=== PATIENT | female | born 2000 | race Two or more races ===

== ENCOUNTER 2021-07-23 14:29 | Emergency (ER) | payer MEDICAID, OTHER ==
[~2021-07-23] VITALS: Ht 172.7 cm; Wt 110.2 kg
[2021-07-23 15:02] LABS: Basophils # (auto) 0 10 ^3/uL (0-0.2); Basophils % (auto) 0.5 % (0.0-2.0); Eosinophils # (auto) 0 10 ^3/uL (0-0.8); Eosinophils % (auto) 0.3 % (0.0-7.0); Hematocrit 46.7 % (36.0-46.0); Hemoglobin 15.7 g/dL (12.2-16.2); Lymphocytes # (auto) 0.7 10 ^3/uL (0.4-5.4); Lymphocytes % (auto) 7.5 % (10.0-50.0); Mean Corpuscular Hgb Conc. 33.6 g/dL (32.0-36.0); Mean Corpuscular Volume 86.4 fL (80.0-100.0); Monocytes % (auto) 9.7 % (0.0-12.0); Neutrophils # (auto) 8.1 10 ^3/uL (1.6-8.6); Nucleated Red Blood Cells % 0.1 %; Red Cell Distribution Width 13.4 % (11.8-14.3); White Blood Cell 9.9 10^3/uL (4.4-10.8)
[2021-07-23 15:19] LABS: Albumin 4.1 g/dL (3.4-5.0); Calcium 9.9 mg/dL (8.5-10.1); Potassium 3.4 mmol/L (3.5-5.1)
[2021-07-23 15:28] LABS: Bilirubin, Total 1.1 mg/dL (0.2-1.0); Total Protein 8.6 g/dL (6.4-8.2)
[2021-07-23 16:10] LABS: Urine Bacteria NONE SEEN /hpf (None Seen); Urine Blood Negative /uL (Negative); Urine Hyaline Cast FEW /lpf (0 - 2); Urine Mucus FEW (None Seen); Urine Specific Gravity 1.025 (1.001-1.035); Urine WBC <1 /hpf (0 - 5)
[2021-07-23] MEDS ORDERED: SODIUM CHLORIDE 0.9% 1,000 ML IV ONE ×2 (16:15)
[2021-07-23 17:38] VITALS: BP 137/68
== END 2021-07-23 18:52 | disposition home or self-care (01) ==
LOC: ER 14:29
DX: O21.8 Other vomiting complicating pregnancy (principal); E86.0 Dehydration; Z3A.01 Less than 8 weeks gestation of pregnancy
CPT/HCPCS: 36415; 76801; 76817; 80053; 81001; 84702; 85025; 96360; 96361; 99284; J7030

== ENCOUNTER 2021-07-25 19:06 | Emergency (ER) | payer MEDICAID ==
[~2021-07-25] VITALS: Ht 172.7 cm; Wt 110.2 kg
[2021-07-25 20:47] VITALS: BP 139/72
== END 2021-07-25 20:48 | disposition home or self-care (01) ==
LOC: ER 19:07
DX: O36.4XX9 Maternal care for intrauterine death, other fetus (principal); O99.511 Diseases of the respiratory system complicating pregnancy, first trimester; J45.909 Unspecified asthma, uncomplicated; I10 Essential (primary) hypertension; Z3A.00 Weeks of gestation of pregnancy not specified

== ENCOUNTER 2021-07-27 14:28 | Emergency (ER) | payer MEDICAID ==
[~2021-07-27] VITALS: Ht 172.7 cm; Wt 110.2 kg
[2021-07-27] MEDS ORDERED: MORPHINE SULFATE 4 MG/ML SYR/VIAL IV ONE (14:45)
[2021-07-27] MEDS ORDERED: SODIUM CHLORIDE 0.9% 1,000 ML IVB ONE (14:45)
[2021-07-27] MEDS ORDERED: ONDANSETRON HCL 4 MG/2 ML VIAL IV ONE (14:45)
[2021-07-27 14:54] LABS: Basophils # (auto) 0 10 ^3/uL (0-0.2); Basophils % (auto) 0.7 % (0.0-2.0); Eosinophils # (auto) 0 10 ^3/uL (0-0.8); Eosinophils % (auto) 0.3 % (0.0-7.0); Hematocrit 45.8 % (36.0-46.0); Hemoglobin 16.1 g/dL (12.2-16.2); Lymphocytes # (auto) 1.4 10 ^3/uL (0.4-5.4); Lymphocytes % (auto) 28.2 % (10.0-50.0); Mean Corpuscular Hemoglobin 29.3 pg (28.0-32.0); Mean Corpuscular Hgb Conc. 35.2 g/dL (32.0-36.0); Mean Corpuscular Volume 83.3 fL (80.0-100.0); Monocytes # (auto) 0.7 10 ^3/uL (0-1.3); Monocytes % (auto) 12.8 % (0.0-12.0); Nucleated Red Blood Cells % 0.3 %; Red Cell Distribution Width 13.2 % (11.8-14.3); White Blood Cell 5.1 10^3/uL (4.4-10.8)
[2021-07-27 15:08] LABS: Albumin 3.7 g/dL (3.4-5.0); Calcium 9.6 mg/dL (8.5-10.1)
[2021-07-27 15:13] LABS: Bilirubin, Total 0.9 mg/dL (0.2-1.0); Total Protein 8.3 g/dL (6.4-8.2)
[2021-07-27 15:22] LABS: Potassium 2.9 mmol/L (3.5-5.1)
[2021-07-27] MEDS ORDERED: POTASSIUM CHL 20MEQ/100ML 100 ML IV ONE (15:30)
[2021-07-27 16:20] VITALS: BP 117/64
[2021-07-27 16:50] LABS: INR 1.03 (0.9-1.15); Partial Thromboplastin Time 33.6 sec (23.6-33.0)
[2021-07-27] MEDS ORDERED: POTASSIUM CHL 20 Meq TABLET PO ONE (17:00)
== END 2021-07-27 17:10 | disposition home or self-care (01) ==
LOC: ER 14:28
DX: O36.4XX0 Maternal care for intrauterine death, not applicable or unspecified (principal); Z3A.01 Less than 8 weeks gestation of pregnancy
CPT/HCPCS: 36415; 76801; 76817; 80053; 84702; 85025; 85610; 85730; 86850; 86900; 86901; 96361; 96374; 96375; 99284; J2270; J2405; J3480; J7030

== ENCOUNTER 2021-07-29 11:49 | Emergency (ER) | payer MEDICAID ==
[~2021-07-29] VITALS: Ht 172.7 cm; Wt 109.8 kg
[2021-07-29 13:22] LABS: Albumin 3.8 g/dL (3.4-5.0); Calcium 9.7 mg/dL (8.5-10.1)
[2021-07-29 13:25] LABS: BUN/Creatinine Ratio 9.6; Total Protein 8.2 g/dL (6.4-8.2)
[2021-07-29 13:27] LABS: Basophils # (auto) 0 10 ^3/uL (0-0.2); Basophils % (auto) 0.4 % (0.0-2.0); Eosinophils # (auto) 0 10 ^3/uL (0-0.8); Eosinophils % (auto) 0.4 % (0.0-7.0); Hematocrit 46.7 % (36.0-46.0); Lymphocytes # (auto) 1.3 10 ^3/uL (0.4-5.4); Lymphocytes % (auto) 25.2 % (10.0-50.0); Mean Corpuscular Hgb Conc. 34.4 g/dL (32.0-36.0); Mean Corpuscular Volume 84.4 fL (80.0-100.0); Monocytes # (auto) 0.7 10 ^3/uL (0-1.3); Monocytes % (auto) 12.8 % (0.0-12.0); Neutrophils # (auto) 3.2 10 ^3/uL (1.6-8.6); Neutrophils % (auto) 61.2 % (37.0-80.0); Nucleated Red Blood Cells % 0.9 %; Red Blood Cells 5.53 10^6/uL (4.0-5.20); Red Cell Distribution Width 13.2 % (11.8-14.3); White Blood Cell 5.3 10^3/uL (4.4-10.8)
[2021-07-29 13:30] LABS: Potassium 2.8 mmol/L (3.5-5.1)
[2021-07-29] MEDS ORDERED: POTASSIUM CHL 20MEQ/100ML 100 ML IV STA (13:33)
[2021-07-29] MEDS ORDERED: ONDANSETRON HCL 4 MG/2 ML VIAL IV ONE (13:45)
[2021-07-29] MEDS ORDERED: fentaNYL CITRATE 100 MCG/2 ML VL IV ONE (13:45)
[2021-07-29] MEDS ORDERED: LACTATED RINGER'S 1,000 ML IV ONE ×2 (13:45→22:00)
[2021-07-29] MEDS ORDERED: POTASSIUM EFFERVESENT TAB 25 MEQ ONE (15:19)
[2021-07-29] MEDS ORDERED: ONDANSETRON ODT 4 MG TAB PO ONE (15:19)
[2021-07-29 23:00] VITALS: BP 119/71
== END 2021-07-30 02:12 | disposition home or self-care (01) ==
LOC: ER 11:49
DX: O98.511 Other viral diseases complicating pregnancy, first trimester (principal); U07.1 COVID-19; O36.4XX9 Maternal care for intrauterine death, other fetus; E86.0 Dehydration; O21.8 Other vomiting complicating pregnancy; E87.6 Hypokalemia; O16.1 Unspecified maternal hypertension, first trimester; O99.511 Diseases of the respiratory system complicating pregnancy, first trimester; J45.909 Unspecified asthma, uncomplicated; Z3A.01 Less than 8 weeks gestation of pregnancy
CPT/HCPCS: 36415; 76801; 76817; 80053; 84702; 85025; 87426; 96365; 96366; 96375; 99284; J2405; J3010; J3480; Q0162

== ENCOUNTER 2021-08-30 22:01 | Day surgery (SDC) | payer MEDICAID ==
[~2021-08-30] VITALS: Ht 172.7 cm; Wt 104.3 kg
[2021-08-30] MEDS ORDERED: SODIUM CHLORIDE 0.9% 1,000 ML IVB ONE (23:00)
[2021-08-30 23:19] LABS: Basophils # (auto) 0 10 ^3/uL (0-0.2); Basophils % (auto) 0.4 % (0.0-2.0); Eosinophils # (auto) 0.2 10 ^3/uL (0-0.8); Eosinophils % (auto) 1.6 % (0.0-7.0); Hematocrit 37.5 % (36.0-46.0); Hemoglobin 12.3 g/dL (12.2-16.2); Lymphocytes # (auto) 2.5 10 ^3/uL (0.4-5.4); Lymphocytes % (auto) 26.5 % (10.0-50.0); Mean Corpuscular Hemoglobin 29.3 pg (28.0-32.0); Mean Corpuscular Hgb Conc. 32.9 g/dL (32.0-36.0); Monocytes # (auto) 0.5 10 ^3/uL (0-1.3); Monocytes % (auto) 5.6 % (0.0-12.0); Neutrophils # (auto) 6.3 10 ^3/uL (1.6-8.6); Neutrophils % (auto) 65.9 % (37.0-80.0); Nucleated Red Blood Cells % 0.1 %; Red Blood Cells 4.21 10^6/uL (4.0-5.20); White Blood Cell 9.5 10^3/uL (4.4-10.8)
[2021-08-30 23:42] LABS: Potassium 3.8 mmol/L (3.5-5.1)
[2021-08-30 23:50] LABS: BUN/Creatinine Ratio 15.7; Bilirubin, Total 0.1 mg/dL (0.2-1.0); Calcium 8.8 mg/dL (8.5-10.1); Total Protein 6.8 g/dL (6.4-8.2)
[2021-08-31] MEDS ORDERED: MORPHINE SULFATE 4 MG/ML SYR/VIAL IV ONE ×3 (01:45→06:15)
[2021-08-31] MEDS ORDERED: ONDANSETRON HCL 4 MG/2 ML VIAL IV ONE ×2 (01:45→04:00)
[2021-08-31] MEDS ORDERED: METHYLERGONOVINE MALEATE 0.2 MG/ML AMP IM ONE (01:45)
[2021-08-31] MEDS ORDERED: SODIUM CHLORIDE 0.9% 1,000 ML IV ONE (01:45)
[2021-08-31] MEDS ORDERED: OXYTOCIN 10UNIT/ML 1ML VIAL IV ONE (02:45)
[2021-08-31] MEDS ORDERED: LACTATED RINGER'S 1,000 ML IV ONE (02:45)
[2021-08-31] MEDS ORDERED: OXYTOCIN 20 UNT in LACTATED RINGER'S 1,000 ML IV STA (02:50)
[2021-08-31] MEDS ORDERED: LACT. RINGERS/OXYTOCIN 20UNITS 1,000 ML IV ONE (03:12)
[2021-08-31] MEDS ORDERED: ONDANSETRON HCL 4 MG/2 ML VIAL ONE (03:57)
[2021-08-31] MEDS ORDERED: METOCLOPRAMIDE HCL 5MG/ml INJ 2ml VIAL ONE (06:14)
[2021-08-31] MEDS ORDERED: METOCLOPRAMIDE HCL 5MG/ml INJ 2ml VIAL IV ONE (06:15)
[2021-08-31] MEDS ORDERED: MORPHINE SULFATE 4 MG/ML SYR/VIAL ONE (06:16)
[2021-08-31 06:22] LABS: Basophils # (auto) 0 10 ^3/uL (0-0.2); Basophils % (auto) 0.1 % (0.0-2.0); Eosinophils # (auto) 0 10 ^3/uL (0-0.8); Eosinophils % (auto) 0.1 % (0.0-7.0); Hematocrit 27.3 % (36.0-46.0); Hemoglobin 8.8 g/dL (12.2-16.2); Lymphocytes # (auto) 1.5 10 ^3/uL (0.4-5.4); Lymphocytes % (auto) 7.9 % (10.0-50.0); Mean Corpuscular Hgb Conc. 32.3 g/dL (32.0-36.0); Mean Corpuscular Volume 89.7 fL (80.0-100.0); Monocytes # (auto) 0.8 10 ^3/uL (0-1.3); Neutrophils # (auto) 16.9 10 ^3/uL (1.6-8.6); Neutrophils % (auto) 87.9 % (37.0-80.0); Red Blood Cells 3.04 10^6/uL (4.0-5.20); Red Cell Distribution Width 15.4 % (11.8-14.3); White Blood Cell 19.2 10^3/uL (4.4-10.8)
[2021-08-31] MEDS ORDERED: PHENYLEPHRINE HCL 10 MG/ML VL IV ONE (08:15)
[2021-08-31] MEDS ORDERED: MEPERIDINE HCL (25 MG/ML) 1ML VIAL ONE (08:43)
[2021-08-31] MEDS ORDERED: fentaNYL CITRATE 100 MCG/2 ML VL ONE (08:43)
[2021-08-31] MEDS ORDERED: MIDAZOLAM HCL 2MG/2ML 2ml VIAL (1mg/ml) ONE (08:43)
[2021-08-31] MEDS ORDERED: ceFAZolin 1GM/50ML 100 ML IV ONE (08:45)
[2021-08-31] MEDS ORDERED: DexAMETHasone SOD PHOS 10MG/1ML VIAL INJ ONE (08:52)
[2021-08-31] MEDS ORDERED: OXYTOCIN 10UNIT/ML 1ML VIAL ONE (08:52)
[2021-08-31] MEDS ORDERED: PROPOFOL 10 MG/ML 20 ML IV ONE (09:43)
[2021-08-31] MEDS ORDERED: RHO (D) IMMUNE GLOBULIN 300 MCG INJ IM PRN (10:00)
[2021-08-31 10:25] VITALS: BP 111/57
[2021-08-31] MEDS ORDERED: ePHEDrine SULFATE 50 MG/ML AMP IV PRN (10:30)
[2021-08-31] MEDS ORDERED: MORPHINE SULFATE 4 MG/ML SYR/VIAL IV PRN (10:30)
[2021-08-31] MEDS ORDERED: MIDAZOLAM HCL 2MG/2ML 2ml VIAL (1mg/ml) IV PRN (10:30)
[2021-08-31] MEDS ORDERED: ONDANSETRON HCL 4 MG/2 ML VIAL IV PRN (10:30)
[2021-08-31] MEDS ORDERED: LABETALOL HCL 5 MG/ML 4ML SYRINGE IV PRN (10:30)
[2021-08-31] MEDS ORDERED: HYDROmorphone HCL 2 MG/ML VL IV PRN (10:30)
[2021-08-31] MEDS ORDERED: ePHEDrine SULFATE 50 MG/ML AMP ONE (13:49)
[2021-08-31 14:09] LABS: Basophils # (auto) 0 10 ^3/uL (0-0.2); Eosinophils # (auto) 0 10 ^3/uL (0-0.8); Hematocrit 30.1 % (36.0-46.0); Hemoglobin 10.4 g/dL (12.2-16.2); Lymphocytes # (auto) 0.8 10 ^3/uL (0.4-5.4); Lymphocytes % (auto) 5.7 % (10.0-50.0); Mean Corpuscular Hemoglobin 31.1 pg (28.0-32.0); Mean Corpuscular Hgb Conc. 34.5 g/dL (32.0-36.0); Monocytes # (auto) 0.2 10 ^3/uL (0-1.3); Monocytes % (auto) 1.3 % (0.0-12.0); Neutrophils # (auto) 12.5 10 ^3/uL (1.6-8.6); Red Blood Cells 3.34 10^6/uL (4.0-5.20); Red Cell Distribution Width 15.4 % (11.8-14.3); White Blood Cell 13.5 10^3/uL (4.4-10.8)
[2021-08-31 14:30] VITALS: BP 100/50
== END 2021-08-31 15:50 | disposition home or self-care (01) ==
LOC: ER 22:08 → SUR 08-31 08:14
PROVIDERS: ATTEND Obstetrics & Gynecology
DX: O03.4 Incomplete spontaneous abortion without complication (principal); D53.9 Nutritional anemia, unspecified; N85.00 Endometrial hyperplasia, unspecified; O34.10 Maternal care for benign tumor of corpus uteri, unspecified trimester; O73.1 Retained portions of placenta and membranes, without hemorrhage; Z86.2 Personal history of diseases of the blood and blood-forming organs and certain disorders involving the immune mechanism; E66.9 Obesity, unspecified; Z68.35 Body mass index [BMI] 35.0-35.9, adult; J45.909 Unspecified asthma, uncomplicated; Z20.822 Contact with and (suspected) exposure to COVID-19
CPT/HCPCS: 36415; 59820; 76801; 76817; 76830; 80053; 84702; 85025; 86850; 86900; 86901; 86920; 87426; 88305; 96365; 96375; 96376; 99285; J0690; J1100; J2175; J2210; J2250; J2270; J2405; J2590; J2704; J2765; J3010; J7030; P9016

== ENCOUNTER 2022-07-09 14:45 | Emergency (ER) | payer MEDICAID ==
[~2022-07-09] VITALS: Ht 172.7 cm; Wt 111.0 kg
[2022-07-09 15:34] LABS: Urine Bacteria NONE SEEN /hpf (None Seen); Urine Blood Negative /uL (Negative); Urine Hyaline Cast MANY /lpf (0 - 2); Urine Mucus FEW (None Seen); Urine Specific Gravity 1.034 (1.001-1.035); Urine WBC 18 /hpf (0 - 5)
[2022-07-09 16:12] LABS: Basophils # (auto) 0.1 10 ^3/uL (0-0.2); Basophils % (auto) 0.6 % (0.0-2.0); Eosinophils # (auto) 0.2 10 ^3/uL (0-0.8); Eosinophils % (auto) 1.3 % (0.0-7.0); Hemoglobin 16.3 g/dL (12.2-16.2); Lymphocytes % (auto) 22.4 % (10.0-50.0); Mean Corpuscular Hemoglobin 28.1 pg (28.0-32.0); Mean Corpuscular Hgb Conc. 33.3 g/dL (32.0-36.0); Mean Corpuscular Volume 84.4 fL (80.0-100.0); Monocytes # (auto) 0.9 10 ^3/uL (0-1.3); Monocytes % (auto) 6.3 % (0.0-12.0); Neutrophils # (auto) 9.4 10 ^3/uL (1.6-8.6); Neutrophils % (auto) 69.4 % (37.0-80.0); Nucleated Red Blood Cells % 0.1 %; Red Blood Cells 5.81 10^6/uL (4.0-5.20); Red Cell Distribution Width 14.7 % (11.8-14.3); White Blood Cell 13.6 10^3/uL (4.4-10.8)
[2022-07-09 16:30] LABS: Albumin 4.7 g/dL (3.4-5.0); Calcium 10.1 mg/dL (8.5-10.1); Potassium 3.6 mmol/L (3.5-5.1)
[2022-07-09 16:35] LABS: BUN/Creatinine Ratio 7.3; Bilirubin, Total 0.6 mg/dL (0.2-1.0); Total Protein 8.9 g/dL (6.4-8.2)
[2022-07-09] MEDS ORDERED: CIPR-173 PO (19:08)
[2022-07-09 20:40] VITALS: BP 143/97
== END 2022-07-09 20:40 | disposition home or self-care (01) ==
LOC: ER 14:45
DX: K29.70 Gastritis, unspecified, without bleeding (principal); E86.0 Dehydration; J45.909 Unspecified asthma, uncomplicated
CPT/HCPCS: 36415; 74176; 80053; 81001; 81025; 83690; 85025

== ENCOUNTER 2024-09-08 13:17 | Emergency (ER) | payer MEDICAID ==
[~2024-09-08] VITALS: Ht 172.7 cm; Wt 107.8 kg
[~2024-09-08 13:17] MED LIST: CIPR-173 PO
--- NOTE | 2024-09-08 13:27 | ED.PDOC ---
History of Present Illness HPI Comments 23-year-old female came to the ER complaining of cough for the past two weeks. She was seen at [facility] few days ago for the same symptom for which she was given cough syrup and sent home. The prescription was never sent to the pharmacy. Patient comes today saying that cough has not resolved. She has been having on and off fevers along with body ache. She denies abdominal pain. She denies chest pain. She denies shortness a breath. Denies any pain on urination. Denies any other symptoms. Time Seen by MD: 13:18 Primary Care Provider: None Reviewed Notes: Nurses Notes, Medications, Allergies Allergies: Coded Allergies: NO KNOWN ALLERGIES (Unverified , 07/23/21) Home Meds Active Scripts Ciprofloxacin Hcl (Cipro) 500 Mg Tab, 500 MG PO BID for 7 Days, #14 CAP Prov:GERRY AKHTAR MD 07/09/22 Information Source: Patient Mode of Arrival: Ambulatory Severity: Mild Timing: Days Duration: Since onset Past Medical History PAST MEDICAL HISTORY: Asthma Surgical History: Denies all surgeries [employer] History: Spontaneous Family History Family History: Family hx of DM Social History Smoker: Non-Smoker Alcohol: Denies ETOH Use Drugs: Denies Drug Use Lives In: Home Constitutional: denies: chills, diaphoresis, fatigue, fever, malaise, sweats, weakness, others EENTM: denies: blurred vision, double vision, ear bleeding, ear discharge, ear drainage, ear pain, ear ringing, eye pain, eye redness, hearing loss, mouth pain, mouth swelling, nasal discharge, nose bleeding, nose congestion, nose pain, photophobia, tearing, throat pain, throat swelling, voice changes, others Respiratory: reports: cough; denies: hemoptysis, orthopnea, SOB at rest, shortness of breath, SOB with excertion, stridor, wheezing, others Cardiovascular: denies: chest pain, dizzy spells, diaphoresis, Dyspnea on exe rtion, edema, irregular heart beat, left arm pain, lightheadedness, palpitations, PND, syncope, others Gastrointestinal: denies: abdomen distended, abdominal pain, blood streaked bowels, constipated, diarrhea, dysphagia, difficulty swallowing, hematemesis, melena, nausea, poor appetite, poor fluid intake, rectal bleeding, rectal pain, vomiting, others Genitourinary: denies: abnormal vagina bleeding, burning, dyspareunia, dysuria, flank pain, frequency, hematuria, incontinence, pain, , vagina discharge, urgency, others Neurological: denies: dizziness, fainting, headache, left sided numbness, left sided weakness, numbness, paresthesia, pre-existing deficit, right sided numbness, right sided weakness, seizure, speech problems, tingling, tremors, weakness, others Musculoskeletal: denies: back pain, gout, joint pain, joint swelling, muscle pain, muscle stiffness, neck pain, others Integumetry: denies: bruises, change in color, change in hair/nails, dryness, laceration, lesions, lumps, rash, wounds, others Allergic/Immunocompromised: denies: Difficulty Healing, Frequent Infections, Hives, Itching, others Hematologic/Lymphatic: denies: anemia, blood clots, easy bleeding, easy bruising, swollen glands, others Endocrine: denies: excessive hunger, excessive sweating, excessive thirst, excessive urination, flushing, intolerance to cold, intolerance to heat, unexplained weight gain, unexplained weight loss, others Psychiatric: denies: anxiety, bipolar disorder, depression, hopeless, panic disorder, schizophrenia, sleepless, suicidal, others Physical Exam General Appearance: No Apparent Distress, Normal HEENT: Normal ENT Inspection, Pharynx Normal, TMs Normal Neck: Full Range of Motion, Non-Tender, Normal, Normal Inspection Respiratory: Chest Non-Tender, Lungs Clear, No Accessory Muscle Use, No Respiratory Distress, Normal Breath Sounds Cardiovascular: No Edema, No JVD, No Murmur, No Gallop, Normal Peripheral Pulses, Regular Rate/Rhythm Breast Exam: Deferred Gastrointestinal: No Organomegaly, Non Tender, No Pulsatile Mass, Normal Bowel Sounds, Soft Genitalia: Deferred Pelvic: Deferred Rectal: Deferred Extremities: No calf tenderness, Normal capillary refill, Normal inspection, Normal range of motion, Non-tender, No pedal edema Musculoskeletal : Apperance: Normal Neurologic: Alert, 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 Was a procedure done?: No Differential Dx Considerations may include: Upper respiratory tract infection Laryngitis X-Ray, Labs, Meds, VS Patient alert. Complaining of cough. Vitals stable. Answering all questions. Lungs clear. She does have scratchy voice. Laryngitis. Reviewed her history. She was given prescription of prednisolone amoxicillin antibiotic. Explained to the patient. Was told to follow up with her primary care physician. Was told to come back if there is any problem. Time of 1ST Reevaluation: 13:25 Reevaluation 1ST: Improved Patient Education/Counseling: Diagnosis, Treatment, Prognosis, Need For Follow Up Family Education/Counseling: No Family Present Departure 1 Departure Time of Disposition: 13:26 Impression: Primary Impression: Upper respiratory tract infection Qualified Codes: J06.9 - Acute upper respiratory infection, unspecified Disposition: 01 HOME / SELF CARE / HOMELESS Condition: Good Discharged With: Self Critical Care Note Critical Care Time?: No Stability Stability form required: No Heart Score Heart Score: Heart Score Response (Comments) Value History N/A 0 EKG N/A 0 Age N/A 0 Risk Factors N/A 0 Troponin N/A 0 Total 0 RADAMES DODD MD Sep 08, 2024 13:27
[2024-09-08 14:33] VITALS: BP 140/78; PULSE 96; RESP 17; TEMP 98; O2SAT 99
== END 2024-09-08 14:43 | disposition home or self-care (01) ==
LOC: ER 13:24
DX: J06.9 Acute upper respiratory infection, unspecified (principal); J45.909 Unspecified asthma, uncomplicated

== ENCOUNTER 2025-03-27 16:17 | Emergency (ER) | payer MEDICAID, OTHER ==
[~2025-03-27] VITALS: Ht 152.4 cm; Wt 115.3 kg
[2025-03-27] MEDS: KETOROLAC TROMETH 60MG/2ML VIAL IM ONE (17:15)
--- NOTE | 2025-03-27 17:22 | ED.PDOC ---
History of Present Illness HPI Comments 24-year-old morbidly obese female presents to the ER with primary care history of asthma and the chief complaint of right-sided head pain and right elbow pain status post fall at work approximately 1/2 hour prior to arrival. Patient reports on being at work and slipping on water that was on the floor, hitting the right side of the head, right elbow, right hip, and right thigh. Patient notes that after the incident she immediately felt dizzy and can not definitively rule out LOC. Denies chills, fever, N/V/D, SOB, LOC, bleeding, CP. No other associated symptoms, modifiers, recent injuries or sick contacts present at this time. No blood loss. 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 Family History Family History: Reviewed,noncontributory to illness, Unknown Social History Smoker: Non-Smoker Alcohol: Denies ETOH Use Drugs: Denies Drug Use Lives In: Home Constitutional: reports: others (Head pain after fall with headache); denies: chills, diaphoresis, fatigue, fever, malaise, sweats, weakness EENTM: denies: blurred vision, double vision, ear bleeding, ear discharge, ear drainage, ear pain, ear ringing, eye pain, eye redness, hearing loss, mouth pain, mouth swelling, nasal discharge, nose bleeding, nose congestion, nose pain, photophobia, tearing, throat pain, throat swelling, voice changes, others Respiratory: denies: cough, hemoptysis, orthopnea, SOB at rest, shortness of breath, SOB with excertion, stridor, wheezing, others Cardiovascular: denies: chest pain, dizzy spells, diaphoresis, Dyspnea on exertion, edema, irregular heart beat, left arm pain, lightheadedness, palpitations, PND, syncope, others Gastrointestinal: denies: abdomen distended, abdominal pain, blood streaked bowels, constipated, diarrhea, dysphagia, difficulty swallowing, hematemesis, melena, nausea, poor appetite, poor fluid intake, rectal bleeding, rectal pain, vomiting, others Genitourinary: denies: abnormal vagina bleeding, burning, dyspareunia, dysuria, flank pain, frequency, hematuria, incontinence, pain, , vagina discharge, urgency, others Neurological: reports: headache; denies: dizziness, fainting, left sided numbness, left sided weakness, numbness, paresthesia, pre-existing deficit, right sided numbness, right sided weakness, seizure, speech problems, tingling, tremors, weakness, others Musculoskeletal: reports: others (Elbow pain, right hip and thigh pain); denies: back pain, gout, joint pain, joint swelling, muscle pain, muscle stiffness, neck pain Integumetry: denies: bruises, change in color, change in hair/nails, dryness, laceration, lesions, lumps, rash, wounds, others Allergic/Immunocompromised: denies: Difficulty Healing, Frequent Infections, Hives, Itching, others Hematologic/Lymphatic: denies: anemia, blood clots, easy bleeding, easy bruising, swollen glands, others Endocrine: denies: excessive hunger, excessive sweating, excessive thirst, excessive urination, flushing, intolerance to cold, intolerance to heat, unexplained weight gain, unexplained weight loss, others Psychiatric: denies: anxiety, bipolar disorder, depression, hopeless, panic disorder, schizophrenia, sleepless, suicidal, others All Other Systems: Reviewed and Negative Physical Exam General Appearance: Moderate Distress ([id number] distress due to head and elbow pain.), Normal HEENT: Head (Cranial exam was unremarkable. No signs of trauma. No skull depressions or deformities. Patient does not display any signs of altered mental status.), Normal ENT Inspection, Pharynx Normal, TMs Normal Neck: Full Range of Motion, Non-Tender, Normal, Normal Inspection Respiratory: Chest Non-Tender, Lungs Clear, No Accessory Muscle Use, No R espiratory Distress, Normal Breath Sounds Cardiovascular: No Edema, No JVD, No Murmur, No Gallop, Normal Peripheral Pulses, Regular Rate/Rhythm Breast Exam: Deferred Gastrointestinal: No Organomegaly, Non Tender, No Pulsatile Mass, Normal Bowel Sounds, Soft Genitalia: Deferred Pelvic: Deferred Rectal: Deferred Extremities: Other (All physical studies were difficult to assess due to body habitus. Right elbow is diffusely tender to palpation throughout lateral aspect. No definitive ecchymosis noted. Right hip and thigh were tender to palpation throughout. No signs of trauma. [id number] reduced range of motion and right elbow and right hip region.) Musculoskeletal : Apperance: Normal Neurologic: Alert, No Motor Deficits, Normal Affect, Normal Mood, No Sensory Deficits Cerebellar Function: Normal Reflexes: Normal Skin: Dry, Normal Color, Warm Lymphatic: No Adenopathy Was a procedure done? Was a procedure done?: No Differential Dx Considerations may include: Elbow fracture, elbow contusion, subarachnoid hemorrhage, subdural hematoma, skull fracture, head trauma, hip contusion X-Ray, Labs, Meds, VS Vital Signs Date Time Temp Pulse Resp B/P (MAP) Pulse Ox O2 Delivery O2 Flow Rate FiO2 03/27/25 16:44 98.0 72 18 157/91 (113) 98 98.0 X-Ray, Labs, Meds, VS Comment All studies performed the ED were evaluated by me personally. Head CT was unremarkable for any acute intracranial process. No skull fracture noted. Right elbow was unremarkable for any fractures. Patient sustained a head trauma as well as an elbow contusion and hip contusion. Advised pain medication as needed as well as ice therapy. Time of 1ST Reevaluation: 18:19 Reevaluation 1ST: Improved Consultation: PCP Patient Education/Counseling: Diagnosis, Treatment, Prognosis Family Education/Counseling: Diagnosis, Treatment, No Family Present Departure 1 Departure Time of Disposition: 18:20 Impression: Primary Impression: Head trauma Additional Impressions: Elbow contusion Contusion, hip Disposition: HOME / SELF CARE / HOMELESS Condition: Stable Additional Instructions: Advised patient utilize pain medication as needed as well as ice therapy. If symptoms continue, patient will need to follow up with a worker's comp doctor for evaluation. e-Prescriptions Hydrocodone-Acetaminophen (Hydrocodone Bitartrate/AC 5-325 mg) 1 Tab Tab 1 TAB PO Q6HP PRN, #12 TAB Prov: INDU WYATT PAC 03/27/25 Ibuprofen Micronized (Ibuprofen) 800 Mg Tab 800 MG PO Q8HP PRN, #20 TAB Prov: INDU WYATT PAC 03/27/25 Discharged With: Self, Friend Critical Care Note Critical Care Time?: No Stability Stability form required: No Heart Score Heart Score: Heart Score Response (Comments) Value History N/A 0 EKG N/A 0 Age N/A 0 Risk Factors N/A 0 Troponin N/A 0 Total 0 I personally scribed for INDU WYATT PAC ([email or web address]) on 03/27/25 at 17:22. Electronically submitted by Ty Arango ([email or web address]). INDU WYATT PAC March 27, 2025 17:22
--- NOTE | 2025-03-27 17:58 | DVH ---
CLINICAL INDICATION: Fall/trauma TECHNIQUE: 3 radiographic views of the right elbow were obtained. Comparison: None FINDINGS/IMPRESSION: There is no evidence of acute fracture or dislocation. The visualized joint space is well maintained. The alignment is anatomical. There is no radiopaque foreign body.
--- NOTE | 2025-03-27 18:03 | DVH ---
EXAM: CT HEAD WITHOUT CONTRAST INDICATION: Fall/right-sided head trauma TECHNIQUE: CT of the head without intravenous contrast. Radiation Dose : 1. Head: CT Dose: CTDI volume is 61.52 mGy. Dose-length product is 986.11 mGy*cm The dose indicators for CT are the volume Computed Tomography (CT) Dose Index (CTDIvol) and the Dose Length Product (DLP), and are measured in units of mGy and mGy-cm, respectively. These indicators are not patient dose, but values generated from the CT scanner acquisition factors. The report includes radiation exposure data for exposures received during this examination. COMPARISON: None FINDINGS: There is no evidence of acute intracranial hemorrhage, extra-axial collection, mass effect, midline s hift, herniation or hydrocephalus. The ventricles, sulci and cisterns are age appropriate. The roque-white differentiation is intact. The visualized paranasal sinuses and mastoid air cells are clear. The surrounding soft tissues and osseous structures are unremarkable. IMPRESSION: No acute intracranial abnormality. Radiation optimization: All CT scans at this facility use at least one of these dose optimization gerardo hniques: automated exposure control mA and/or kV adjustment per patient size (includes targeted exam s where dose is matched to clinical indication) or iterative reconstruction.
[2025-03-27] MEDS ORDERED: IBUP-1455 PO (18:21)
[2025-03-27] MEDS ORDERED: HYDR-4902 PO (18:21)
[2025-03-27] MEDS: HYDROcodone-ACET 5/325MG TAB PO ONE (19:02)
[2025-03-27 19:30] VITALS: BP 121/77; PULSE 64; RESP 16; TEMP 98; O2SAT 100
== END 2025-03-27 20:03 | disposition home or self-care (01) ==
LOC: ER 16:17
DX: S50.01XA Contusion of right elbow, initial encounter (principal); S70.01XA Contusion of right hip, initial encounter; S09.8XXA Other specified injuries of head, initial encounter; J45.909 Unspecified asthma, uncomplicated; E66.01 Morbid (severe) obesity due to excess calories; Z68.42 Body mass index [BMI] 45.0-49.9, adult; W18.09XA Striking against other object with subsequent fall, initial encounter; Y93.89 Activity, other specified; Y92.69 Other specified industrial and construction area as the place of occurrence of the external cause; Y99.8 Other external cause status
CPT/HCPCS: 70450; 73080; 96372; 99285; J1885